=== PATIENT | female | born 1960 | race American Indian/Alaskan Native ===

== ENCOUNTER 2017-09-12 03:40 | Emergency (ER) | payer SELFPAY ==
[2017-09-12 04:01] VITALS: BP 169/108; PULSE 99; RESP 16; TEMP 97.9; O2SAT 96
--- NOTE | 2017-09-12 04:18 | ED PDOC ---
Lower Extremity Pain/Injury Time Seen by Provider: 09/12/17 04:01 Chief Complaint (Nursing): Lower Extremity Problem/Injury Chief Complaint (Provider): Bilateral leg swelling History Per: Patient History/Exam Limitations: no limitations Onset/Duration Of Symptoms: Other (4 months) Additional Complaint(s): Patient is a 56 y/o female with no significant past medical history presenting to the emergency department for bilateral leg swelling ongoing for four months. Denies surgical history or other complaints. PCP: none provided. Past Medical History Reviewed: Historical Data, Nursing Documentation, Vital Signs Vital Signs: Last Vital Signs Temp 97.9 F 09/12/17 03:59 Pulse 99 H 09/12/17 03:59 Resp 16 09/12/17 03:59 BP 169/108 H 09/12/17 03:59 Pulse Ox 96 09/12/17 03:59 - Medical History PMH: No Chronic Diseases - Surgical History Surgical History: No Surg Hx - Family History Family History: States: Unknown Family Hx - Home Medications Home Medications: Ambulatory Orders Medication Instructions Recorded Cyclobenzaprine [Cyclobenzaprine 10 mg PO TID #20 tab 07/13/16 HCl] Ibuprofen [Motrin] 600 mg PO Q6 #20 tab 07/13/16 oxyCODONE/Acetaminophen [Percocet 1 ea PO Q6 PRN #5 tab 07/13/16 5/325 mg Tab] Hydrochlorothiazide [Microzide] 12.5 mg PO DAILY #14 cap 10/25/16 - Allergies Allergies/Adverse Reactions: Allergies Allergy/AdvReac Type Severity Reaction Status Date / Time No Known Allergies Allergy Verified 07/13/16 20:20 Review of Systems ROS Statement: Except As Marked, All Systems Reviewed And Found Negative Musculoskeletal: Positive for: Other (bilateral leg swelling) Physical Exam - Reviewed Nursing Documentation Reviewed: Yes Vital Signs Reviewed: Yes - Physical Exam Appears: Positive for: Well, Non-toxic, No Acute Distress Head Exam: Positive for: ATRAUMATIC, NORMAL INSPECTION, NORMOCEPHALIC Skin: Positive for: Normal Color, Warm, Dry Eye Exam: Positive for: Normal appearance Neck: Positive for: Normal Cardiovascular/Chest: Positive for: Regular Rate, Rhythm Respiratory: Negative for: Accessory Muscle Use, Respiratory Distress Extremity: Positive for: Normal ROM, Swelling (chronic bilateral leg swelling) Neurologic/Psych: Positive for: Alert, Oriented (x3) - ECG O2 Sat by Pulse Oximetry: 96 (RA) Pulse Ox Interpretation: Normal Medical Decision Making Medical Decision Makin:00 Impression: chronic edema. Chronic lymphedema of both legs. Patient was given instructions on using compression stockings and advised to elevate legs to help reduce swelling. There are no indications for a work up or clinical tests. Observation ordered. Scribe Attestation: Documented by Uzma Robledo, acting as a scribe for Charlotte Barragan MD. Provider Scribe Attestation: All medical record entries made by the Scribe were at my direction and personally dictated by me. I have reviewed the chart and agree that the record accurately reflects my personal performance of the history, physical exam, medical decision making, and the department course for this patient. I have also personally directed, reviewed, and agree with the discharge instructions and disposition. Disposition - Clinical Impression Clinical Impression: Leg swelling - Patient ED Disposition Is Patient to be Admitted: No Counseled Patient/Family Regarding: Diagnosis - Disposition Referrals: [facility] [Outside] Disposition: Routine/Home Disposition Time: 04:00 Condition: GOOD Additional Instructions: Wear compression stockings at all times. Keep your legs elevated. Instructions: Leg Edema (ED)
== END 2017-09-12 04:25 | disposition home or self-care (01) ==
LOC: H.ER 03:40
DX: R60.0 Localized edema (principal)

== ENCOUNTER 2019-01-22 01:48 | Emergency (ER) | payer OTHER ==
[2019-01-22 02:09] VITALS: BMI 46.9
[2019-01-22 03:41] VITALS: RESP 17
[2019-01-22] MEDS ORDERED: Albuterol 0.083% Inhal Sol (2.5 mg/3 mL) UD INH ONE (05:29)
--- NOTE | 2019-01-22 05:32 | ED PDOC ---
HPI: SOB/CHF/COPD Time Seen by Provider: 01/22/19 02:35 Chief Complaint (Nursing): Respiratory Distress Chief Complaint (Provider): "asthma" History Per: Patient History/Exam Limitations: no limitations Additional Complaint(s): patient complaining of typical asthma symptoms, cant catch her breathe. she does not have her albuterol pump and so was unable to treat her asthma at home. denies fever/cough or any other symptoms. Past Medical History Vital Signs: Last Vital Signs Temp 98.3 F 01/22/19 02:10 Pulse 83 01/22/19 02:10 Resp 17 01/22/19 03:39 BP 176/108 H 01/22/19 02:10 Pulse Ox 96 01/22/19 03:39 - Medical History PMH: HTN - Surgical History Surgical History: No Surg Hx - Family History Family History: States: Unknown Family Hx - Social History Current smoker - smoking cessation education provided: No Alcohol: None Drugs: Denies - Immunization History Hx Tetanus Toxoid Vaccination: No - Home Medications Home Medications: Ambulatory Orders Medication Instructions Recorded Cyclobenzaprine [Cyclobenzaprine 10 mg PO TID #20 tab 07/13/16 HCl] Ibuprofen [Motrin] 600 mg PO Q6 #20 tab 07/13/16 oxyCODONE/Acetaminophen [Percocet 1 ea PO Q6 PRN #5 tab 07/13/16 5/325 mg Tab] Hydrochlorothiazide [Microzide] 12.5 mg PO DAILY #14 cap 10/25/16 Albuterol HFA [Ventolin HFA 90 1 - 2 puff IH Q4H PRN #1 bottle 01/22/19 mcg/actuation (8 g)] - Allergies Allergies/Adverse Reactions: Allergies Allergy/AdvReac Type Severity Reaction Status Date / Time No Known Allergies Allergy Verified 01/22/19 02:09 Physical Exam - Reviewed Nursing Documentation Reviewed: Yes Vital Signs Reviewed: Yes - Physical Exam Appears: Positive for: Well, Non-toxic, No Acute Distress Head Exam: Positive for: ATRAUMATIC, NORMAL INSPECTION, NORMOCEPHALIC Skin: Positive for: Normal Color, Warm, DRY Eye Exam: Positive for: EOMI, Normal appearance, PERRL ENT: Positive for: Normal ENT Inspection Neck: Positive for: Normal, Painless ROM Cardiovascular/Chest: Positive for: Regular Rate, Rhythm Respiratory: Positive for: Wheezing (slight, end expiratory) Gastrointestinal/Abdominal: Positive for: Normal Exam, Soft Back: Positive for: Normal Inspection Extremity: Positive for: Normal ROM Neurological/Psych: Positive for: Awake, Alert, Normal Tone - ECG O2 Sat by Pulse Oximetry: 96 Medical Decision Making Medical Decision Making: asthma exacerbation pt improved with one nebulizer treatment in the ER. vitals stable, o2 aat 100 percent RA pt feels better on repeat exam pt without wheezing pt in no respiratory distress stable for dc and outpt follow up RX albuterol given Disposition - Clinical Impression Clinical Impression: Asthma - Patient ED Disposition Is Patient to be Admitted: No Counseled Patient/Family Regarding: Diagnosis, Need For Followup - Disposition Referrals: [facility] [Outside] [facility] [Outside] Disposition: Routine/Home Disposition Time: 05:40 Condition: IMPROVED Additional Instructions: follow up in the clinic in 2 days return to the ED with any worsening or concerning symptoms Prescriptions: Albuterol HFA [Ventolin HFA 90 mcg/actuation (8 g)] 1 - 2 puff IH Q4H PRN #1 bottle PRN Reason: Wheezing Instructions: Asthma in Adults Forms: [employer] [facility] ([place]qi)
[2019-01-22 06:01] VITALS: BP 156/91; PULSE 79; TEMP 98.1
[2019-01-23 17:56] VITALS: O2SAT 96
== END 2019-01-22 06:01 | disposition home or self-care (01) ==
LOC: H.ER 01:48
DX: J44.9 Chronic obstructive pulmonary disease, unspecified (principal); I10 Essential (primary) hypertension; Z79.899 Other long term (current) drug therapy